=== PATIENT | female | born 1975 | race American Indian/Alaskan Native ===

== ENCOUNTER 2016-09-06 16:15 | Inpatient (IN) | payer BC ==
--- NOTE | 2016-10-13 09:11 | Admit Criteria Form ---
Admission Criteria Documentation: AMBULATORY SURGERY EXCEPTION CRITERIA Ambulatory Surgery Exception Criteria ( Place 'X' for any and all applicable criteria): Surgery or procedure performed on ambulatory basis may require inpatient stay for[A] ANY ONE of the following(1)(2)(3)(4)(5)(6)(7)(8)(9): [X] I. A preoperative situation, condition, or finding that warrants inpatient stay as indicated by ANY ONE of the following: [X] a) Inpatient care needed because of severity of a disease or condition rather than the surgery (eg, severe cardiac or respiratory disease, severe infection) (15) (16 ) (17) (18) [] b) Emergent procedure (eg, angioplasty for acute ischemia)(19) [] c) Complex surgical approach or situation as indicated by ANY ONE of the following(3): [] i) Open approach needed instead of usual endoscopic, transcatheter, or other less invasive procedure [] ii) Difficult approach because of previous operation [] iii) Airway monitoring required after open neck procedures(20)(21) [] iv) Large mass requiring unusually extensive dissection [] v) Additional complicating feature requiring inpatient care (eg, drain management)(22(23): [] d) Major surgery in a pt with high anesthetic risk as indicated by ANY ONE of the following (2)(3)(5)(7)(8): [] i) ASA risk class III or higher (severe systemic disease impairing function) [D] [] ii) Advanced age (eg, older than 85 years)(14)(24) [] iii) Symptomatic heart failure(25) [] iv) Symptomatic asthma or COPD(8)(21) [] v) Morbid obesity with hemodynamic or respiratory problems(20)( 21)(26)(27) [] vi) Obstructive sleep apnea(20)(21) [] vii) Former premature infants who are younger than 60 weeks [] viii) High risk for severe postoperative abnormalities (eg, severe postoperative hypocalcemia after parathyroidectomy for severe hyperparathyroidism)(27)( 28) [] ix) Unstable angina(25) [] e) Drug-related risk requiring inpatient stay as indicated by ANY ONE of the following(5)(10)(14)(32)(33) [] i) Procedure requires discontinuing drugs or other therapy (eg , antiarrhythmic medication, antiseizure medication), which necessitates inpatient observation or treatment.(18)(31) [] ii) Major surgery and high risk drug use as indicated by ANY ONE of the following: [] 1) Active abuse of cocaine or similar drug [] 2) Monoamine oxidase inhibitor use [] 3) Other drug identified as posing risk [] f) Inadequate outpatient care situation as indicated by ANY ONE of the following(5)(10)(14)(32)(33) [] i) Patient lives remote from medical facility and procedure has urgent complication potential, and temporary nearby residence cannot be arranged [] ii) Patient will have postprocedure incapacitation and inadequate assistance at home, or alternative level of care cannot be arranged. [] iii) Patient will have long general anesthesia or procedure side effect resolution time, and competent person to stay with patient on first postoperative night at home or alternative level of care cannot be arranged. []iv) Other inadequate outpatient situation that cannot be handled by other means [] II. A perioperative event, condition, or finding that warrants inpatient stay as indicated by ANY ONE of the following (1)(2)(3): [] a) Inadequate physiologic recovery: cardiovascular, respiratory, or hemodynamic status not normal or near preoperative baseline(18) [] b) Hemodynamic instability [] c) Patient not alert with near normal or baseline mental status [] d) Temperature not normal or as expected and not appropriate for outpatient treatment of condition [] e) Ambulatory or appropriate activity level status not yet achieved post procedure [E](34)(35)(36) [] f) Operative site not appropriate (eg, unexpected or excessive drainage or bleeding) [] g) Postoperative effects not resolved or adequately managed (eg, significant pain or vomiting not appropriate for outpatient or next level of care)(10)(12) [] h) Complicating features requiring inpatient care as indicated by ANY ONE of the following(37): [] i) Severe complications of procedure (eg, bowel injury, airway compromise, vascular injury,severe hemorrhage) [] ii) Extensive (eg, dissection far beyond usual scope of procedure ) or prolonged (eg, 120 minutes beyond usual) surgery needed requiring inpatient postoperative care [] iii) Conversion to an open or complex procedure that requires inpatient care (eg, open vs laparoscopic cholecystectomy, abdominal vs vaginal hysterectomy)(38) [] iv) Comorbid condition or test result identified during or post procedure that requires inpatient care (7) [] v) Malignant hyperthermia(30) [] vi) Other complicating feature requiring inpatient care(22)(23) Inpatient stay may be needed until ALL of the following are present (1)(2)(3)(4) (5)(6)(10)(14)(33)(40): []a) Physiologic recovery: cardiovascular, respiratory, and hemodynamic status normal or near preoperative baseline []b) Hemodynamic stability []c) Patient alert, with near normal or baseline mental status []d) Temperature appropriate: patient afebrile or temperature appropriate for outpt treatment of condition []e) Activity level appropriate: ambulatory or appropriate activity level post procedure []f) Operative site appropriate as indicated by ALL of the following: []i) Site dry or with expected drainage []ii) Any blood noted is as expected for procedure. []g) Postoperative effects resolved or managed as indicated by ALL of the following: []i) Pain management appropriate for outpatient (or next level of) care(10) []ii) Minimal nausea and vomiting: if present, successfully treated with oral medication(12) []iii) Headache, dizziness, or drowsiness (if present) are mild. []h) Voiding status acceptable as indicated by ANY ONE of the following: []i) Voiding spontaneously []ii) No voiding but instructions given for follow-up in 6 to 8 hours []iii) Urinary catheter in place, and instructions given for follow-up []i) Complicating features requiring inpatient care manageable at a lower level of care(37) []j) Comorbid conditions manageable at a lower level of care(37) The original [employer] content created by [employer] has been revised. The portions of the content which have been revised are identified through the use of italic text or in bold, and [employer] has neither reviewed nor approved the modified material. All other unmodified content is copyright [employer]. Please see references footnoted in the original [employer] edition 2016 Admission Criteria Met: Yes
--- NOTE | 2016-10-17 10:25 | Anesthesia Consultation ---
Anesthesia Consult and Med Hx Date of service: 10/17/16 - Airway Anesthetic Teeth Evaluation: Good ROM Head & Neck: Adequate Mental/Hyoid Distance: Adequate Mallampati Class: Class II Intubation Access Assessment: Probably Good - Pulmonary Exam CTA: Yes - Cardiac Exam Cardiac Exam: RRR - Pre-Operative Health Status ASA Pre-Surgery Classification: ASA2 Proposed Anesthetic Plan: General - Pulmonary Hx Smoking: No Hx Asthma: No Hx Sleep Apnea: No - Cardiovascular System Hx Hypertension: No Hx Heart Murmur: Yes (MVP) - Central Nervous System Hx Seizures: No CVA: No Hx Back Pain: Yes (H/O BACK SURGERY) - Gastrointestinal Hx Gastroesophageal Reflux Disease: Yes - Endocrine Hx Renal Disease: No Hx Cirrhosis: No Hx Insulin Dependent Diabetes: No Hx Hypothyroidism: No - Hematic Hx Anemia: Yes (2004) - Other Systems Hx Cancer: No Hx Obesity: Yes (BMI 39)
[2016-10-18] MEDS ORDERED: ZOFRAN IV PRN (05:05)
[2016-10-18] MEDS ORDERED: ANCEF/STERILE WATER 2 GM/20 ML 2 GM/20 ML SYRINGE IV ONE (05:05)
[2016-10-18] MEDS ORDERED: MORPHINE IV PRN (05:05)
[2016-10-18] MEDS ORDERED: LACTATED RINGERS 1,000 ML IV SCH ×2 (06:00)
[2016-10-18] MEDS ORDERED: FLAGYL 500 MG/100 ML 500 MG/100 ML BAG IV NR (06:00)
[2016-10-18] MEDS ORDERED: VERSED IV NR (06:00)
[2016-10-18] MEDS ORDERED: PEPCID IV NR (06:00)
[2016-10-18] MEDS ORDERED: REGLAN IV NR (06:00)
[2016-10-18] MEDS ORDERED: LOVENOX SUB-Q NR ×2 (06:00→07:17)
[2016-10-18] MEDS ORDERED: TRANSDERM-SCOP TD NR (06:00)
[2016-10-18] MEDS ORDERED: QUELICIN ONE (07:18)
[2016-10-18] MEDS ORDERED: XYLOCAINE MPF 2% ONE (07:18)
[2016-10-18] MEDS ORDERED: SUBLIMAZE ONE (07:18)
[2016-10-18] MEDS ORDERED: ZEMURON IV ONE (07:18)
[2016-10-18] MEDS ORDERED: DIPRIVAN 10 MG/ML IV ONE (07:19)
[2016-10-18] MEDS ORDERED: WATER FOR IRRIG STERILE IR ONE (07:46)
[2016-10-18 08:47] LABS: Bacteria,Urine 1+ /HPF (Negative); Bilirubin,Urine NEG (Negative); Blood,Urine SM (Negative); Ketones,Urine NEG (Negative); Leukocyte Esterase,Urine NEG (Negative); Mucus,Urine FEW /HPF; Nitrite,Urine NEG (Negative); Protein,Urine <15 mg/dL mg/dL (Negative); Urobilinogen,Urine < 2.0 mg/dL (<2.0)
[2016-10-18] MEDS ORDERED: XYLOCAINE 1% 20 mL INFILTRATI ONE ×3 (08:57)
[2016-10-18] MEDS ORDERED: MARCAINE-EPI 0.5%-1:200,000 INFILTRATI ONE ×3 (08:57)
[2016-10-18] MEDS ORDERED: NACL 0.9% 1000 ML 1,000 ML ONE (09:57)
[2016-10-18] MEDS ORDERED: NACL 0.9% IR ONE ×3 (10:00)
[2016-10-18] MEDS ORDERED: ZOFRAN ONE (10:04)
[2016-10-18] MEDS ORDERED: BLOXIVERZ ONE (10:04)
[2016-10-18] MEDS ORDERED: ROBINUL ONE (10:04)
[2016-10-18] MEDS ORDERED: DILAUDID ONE (10:15)
[2016-10-18] MEDS: DILAUDID IV PRN ×2 (10:40→11:05)
[2016-10-19] MEDS: NORCO PO PRN ×2 (03:47→08:51)
[2016-10-19 07:57] LABS: Magnesium 1.8 mg/dL (1.7-2.3); Phosphorous 2.5 mg/dL (2.5-4.5)
[2016-10-19] MEDS ORDERED: LOVENOX SUB-Q SCH (10:00)
--- NOTE | 2016-10-19 10:08 | Post Anesthesia Evaluation ---
- Post Anesthesia Evaluation Patient Participated: Yes Airway Patent: Yes Stable Respiratory Function: Yes Nausea/Vomiting: No Temp > 96.8F: Yes Pain Manageable: Yes Adequeate Hydration: Yes Anesthesia Complications: No Block Receding Appropriately: Not Applicable Patient on Ventilator: No
[2016-10-19 10:11] LABS: Basophils % (Auto) 0.3 % (0.0-1.8); Eosinophils % (Auto) 0.2 % (0.0-4.3); Hematocrit 34.1 % (30.3-42.9); Hemoglobin 10.9 gm/dl (10.1-14.3); Mean Corpuscular HGB Conc 32 % (30-34); Mean Corpuscular Hemoglobin 27 pg (28-32); Mean Corpuscular Volume 85 fl (79-97); Platelet Count 231 K/mm3 (140-440); Red Blood Count 4.01 M/mm3 (3.65-5.03); Red Cell Distribution Width 14.2 % (13.2-15.2); White Blood Count 9.1 K/mm3 (4.5-11.0)
[2016-10-19 10:32] LABS: Alanine Aminotransferase 23 units/L (7-56); Albumin 3.3 g/dL (3.9-5); Albumin/Globulin Ratio 1.2 %; Alkaline Phosphatase 65 units/L (35-129); Anion Gap 18 mmol/L; BUN/Creatinine Ratio 8.57; Bilirubin,Total 0.5 mg/dL (0.1-1.2); Blood Urea Nitrogen 6 mg/dL (7-17); Calcium 8.1 mg/dL (8.4-10.2); Carbon Dioxide 19 mmol/L (22-30); Glucose 100 mg/dL (65-100); Potassium 3.7 mmol/L (3.6-5.0); Sodium 137 mmol/L (137-145)
--- NOTE | 2016-10-19 13:19 | Discharge Summary ---
Providers - Providers Date of Admission: 10/18/16 06:22 Date of discharge: 10/19/16 Attending physician: VIGNESH GREENE Primary care physician: KAROLYN VELASCO MD Hospitalization Condition: Stable Hospital course: admitted for overnight observation after surgery recovered appropriately and is ready for discharge Disposition: DISCHARGED TO HOME OR SELFCARE Core Measure Documentation - Palliative Care Palliative Care/ Comfort Measures: Not Applicable - Core Measures Any of the following diagnoses?: none Exam - Constitutional Vitals: Temp Pulse Resp BP Pulse Ox 98.6 F 65 18 145/72 95 10/19/16 12:00 10/19/16 12:00 10/19/16 12:00 10/19/16 12:00 10/19/16 08:00 General appearance: Present: no acute distress, well-nourished - EENT Eyes: Present: PERRL ENT: hearing intact, clear oral mucosa - Neck Neck: Present: supple, normal ROM - Respiratory Respiratory effort: normal Respiratory: bilateral: CTA - Cardiovascular Heart Sounds: Present: S1 & S2. Absent: rub, click - Extremities Extremities: pulses symmetrical, No edema Peripheral Pulses: within normal limits - Abdominal General gastrointestinal: Present: soft, non-distended, normal bowel sounds, other (appropriately tender around wounds. Wounds c/d/i) - Integumentary Integumentary: Present: clear, warm, dry - Musculoskeletal Musculoskeletal: gait normal, strength equal bilaterally - Psychiatric Psychiatric: appropriate mood/affect, intact judgment & insight - Neurologic Neurologic: CNII-XII intact, moves all extremities Plan Activity: advance as tolerated, other Diet: other (bariatric stage 1) Special Instructions: no heavy lifting Follow up with: PRIMARY CARE, [Primary Care Provider] - 7 Days
[2016-10-19 16:43] VITALS: BP 159/70
== END 2016-10-19 18:15 | disposition home or self-care (01) | DRG 327 ==
LOC: 3A 10-18 06:22 → 2B-SURG 10-18 11:02
PROVIDERS: ADMIT Specialist; ATTEND Specialist
PROC: 0DQA4ZZ Repair Jejunum, Percutaneous Endoscopic Approach (ICD-10-PCS; principal; 2016-10-18)
PROC: 0BQR4ZZ (ICD-10-PCS; principal; 2016-10-18)
PROC: 0DQ64ZZ Repair Stomach, Percutaneous Endoscopic Approach (ICD-10-PCS; principal; 2016-10-18)
PROC: 0BQS4ZZ (ICD-10-PCS; principal; 2016-10-18)
DX: K95.89 Other complications of other bariatric procedure (principal); E44.0 Moderate protein-calorie malnutrition; K30 Functional dyspepsia; E66.9 Obesity, unspecified; K21.9 Gastro-esophageal reflux disease without esophagitis; Y92.89 Other specified places as the place of occurrence of the external cause; Y83.8 Other surgical procedures as the cause of abnormal reaction of the patient, or of later complication, without mention of misadventure at the time of the procedure; D64.9 Anemia, unspecified; Z98.84 Bariatric surgery status; Z68.39 Body mass index [BMI] 39.0-39.9, adult; E66.01 Morbid (severe) obesity due to excess calories; Z71.3 Dietary counseling and surveillance; K91.1 Postgastric surgery syndromes; Y83.2 Surgical operation with anastomosis, bypass or graft as the cause of abnormal reaction of the patient, or of later complication, without mention of misadventure at the time of the procedure; K44.9 Diaphragmatic hernia without obstruction or gangrene
CPT/HCPCS: 36415; 80053; 81001; 81025; 83735; 84100; 85025; A4217; J0330; J1170; J1650; J2250; J2270; J2405; J2704; J2710; J2765; J3010; J7030; J7120

== ENCOUNTER 2017-10-22 21:35 | Emergency (ER) | payer BC | END 2017-10-22 21:36 | disposition left against medical advice (07) | LOC: ED 21:35 | DX: Z53.21 Procedure and treatment not carried out due to patient leaving prior to being seen by health care provider (principal) ==